=== PATIENT | male | born 1985 | race Hispanic/Latino ===

== ENCOUNTER 2021-03-31 13:56 | Emergency (ER) | payer BC, SELFPAY ==
[2021-03-31] MEDS ORDERED: Ondansetron PF 4 MG/2 ML Vial ONE (15:15)
[2021-03-31 15:26] LABS: #Lymphocytes 1.5 thou/uL (1.20-3.40); #Monocytes 0.4 thou/uL (0.11-0.59); #Neutrophils 3.7 thou/uL (1.40-6.50); %Basophils 0.1 % (0.0-1.0); %Eosinophils 0.4 % (0.0-10.0); %Lymphocytes 26.9 % (21.0-51.0); %Monocytes 7.8 % (0.0-10.0); %Neutrophils 64.8 % (42.0-75.0); Hemoglobin 14.7 g/dL (14.0-18.0); Mean Corpuscular HGB CONC 33.8 g/dL (32.0-36.0); Mean Corpuscular Hemoglobin 31.6 pg (27.0-31.0); Mean Corpuscular Volume 93.5 fL (78.0-98.0); Mean Platelet Volume 7.3 fL (7.4-10.4); Platelet Count 183 thou/uL (130-400); RBC Distribution Width 11.3 % (11.5-14.5); Red Blood Cell (RBC) Count 4.65 mill/uL (4.70-6.10); White Blood Cell (WBC) Count 5.7 thou/uL (4.8-10.8)
[2021-03-31 15:49] LABS: ALT (SGPT) 58 U/L (8-55); AST (SGOT) 49 U/L (5-34); Alkaline Phosphatase 54 U/L (40-110); Anion Gap 12 mmol/L (10-20); BUN (Urea Nitrogen) 7 mg/dL (8.9-20.6); Bilirubin, Total 0.4 mg/dL (0.2-1.2); Calc. Creatinine Clearance 0 mL/min (70-130); Calcium 8.7 mg/dL (7.8-10.44); Carbon Dioxide 27 mmol/L (22-29); Chloride 102 mmol/L (98-107); Globulin 3.4 g/dL (2.4-3.5); Glucose 96 mg/dL (70-105); Protein, Total 7.4 g/dL (6.0-8.3); Sodium 137 mmol/L (136-145)
[2021-04-01 12:55] LABS: SARS-CoV-2 PCR by NAA DETECTED (NotDetected)
== END 2021-03-31 18:10 | disposition home or self-care (01) ==
LOC: ERS 13:56
DX: U07.1 COVID-19 (principal); E86.0 Dehydration; R11.2 Nausea with vomiting, unspecified; R19.7 Diarrhea, unspecified
CPT/HCPCS: 36415; 80053; 85025; 96374; J2405; U0003; U0005

== ENCOUNTER 2021-04-03 10:11 | Emergency (ER) | payer OTHER, SELFPAY ==
[2021-04-03] MEDS ORDERED: Ketorolac Tromethamine 30 MG/ML VIAL ONE (10:56)
[2021-04-03] MEDS ORDERED: Albuterol 200 PUFF (6.7GM INHALER) ONE (10:58)
== END 2021-04-03 11:40 | disposition home or self-care (01) ==
LOC: ERS 10:11
DX: U07.1 COVID-19 (principal)
CPT/HCPCS: 96372; J1885

== ENCOUNTER 2022-02-03 08:57 | Emergency (ER) | payer OTHER, SELFPAY ==
[2022-02-03] MEDS ORDERED: Ondansetron ODT 4 MG TAB ONE (09:25)
== END 2022-02-03 09:27 | disposition home or self-care (01) ==
LOC: ERS 08:57
DX: B34.9 Viral infection, unspecified (principal); R11.2 Nausea with vomiting, unspecified
CPT/HCPCS: 99283; Q0162